=== PATIENT | female | born 1980 | race Caucasian/White ===

== ENCOUNTER 2017-07-27 19:43 | Emergency (ER) | payer SELFPAY ==
[~2017-07-27] VITALS: Ht 162.6 cm; Wt 94.2 kg
[2017-07-27 20:03] VITALS: Ht 162.6 cm; Wt 94.2 kg
[2017-07-27] MEDS ORDERED: SODIUM CHLORIDE 0.9% 1000ML 2,000 ML IV STA (21:47)
[2017-07-27] MEDS ORDERED: ONDANSETRON INJ 2 MG/ML 2 ML VIAL IV STA (21:47)
[2017-07-27 21:56] VITALS: O2SAT 96
[2017-07-27] MEDS ORDERED: DICYCLOMINE HCL 10 MG/ML 2 ML AMP IM ONE (22:00)
[2017-07-27 22:37] LABS: BASO % 0.1 %; BASO ABS # 0.01 K/uL (0-0.2); EOS % 1.9 %; EOS ABS # 0.14 K/uL (0-0.5); HEMATOCRIT 40.4 % (37-47); HEMOGLOBIN 13.9 g/dL (12.0-16.0); IG# 0.02 K/uL (0.00-0.02); LYMPH ABS # 1.75 K/uL (1.2-3.4); MEAN CORPUSCULAR HEMOGLOBIN 31.7 pg (25-34); MEAN CORPUSCULAR HGB CONC 34.4 g/dl (32-36); MEAN PLATELET VOLUME 10.6 fL (7.4-10.4); MONO % 11.5 %; MONO ABS # 0.84 K/uL (0.11-0.59); NEUT % 62.2 %; NEUT ABS # 4.52 K/uL (1.4-6.5); PLATELET COUNT 155 K/uL (130-400); RED CELL DISTRIBUTION WIDTH SD 47.2 fL (36.4-46.3); WHITE BLOOD COUNT 7.28 K/uL (4.8-10.8)
[2017-07-27 23:00] LABS: ALBUMIN 3.7 gm/dl (3.4-5.0); ALT/SGPT 24 U/L (12-78); BLOOD UREA NITROGEN 8 mg/dl (7-18); CALCIUM 8.4 mg/dl (8.5-10.1); CARBON DIOXIDE 25 mmol/L (21-32); CREATININE 0.63 mg/dl (0.60-1.20); GLUCOSE 99 mg/dl (70-99); LIPASE 131 U/L (73-393); POTASSIUM 3.9 mmol/L (3.5-5.1); SODIUM 135 mmol/L (136-145)
[2017-07-27 23:03] LABS: ALKALINE PHOSPHATASE 52 U/L (45-117); AST/SGOT 20 U/L (15-37); TOTAL PROTEIN 6.9 gm/dl (6.4-8.2)
[2017-07-27] MEDS ORDERED: BENTYL HOME PACK 10 MG VIAL PO ONE (23:45)
[2017-07-27] MEDS ORDERED: ONDANSETRON HOME PACK 4MG OD TAB PO ONE (23:45)
[2017-07-27 23:53] VITALS: BP 120/72; PULSE 70; TEMP 36.8; O2SAT 97
--- NOTE | 2017-07-28 04:56 | EMERGENCY ROOM VISIT NOTE ---
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 Patient woke this morning with nausea, vomiting and dirrhea. Patient states that she feels really bloated nad doesn't want to walk because the abdominal pain is so bad. History of Present Illness The patient is a 36 year old female who presents to the Emergency Room with complaints of nausea, vomiting, diarrhea and abdominal cramping for the past day. Patient was constipated a few days ago. Patient denies chest pain, dyspnea, fever, chills, cough, congestion, black or blood in the vomit or stool. No recent antibiotics. No well water. Other people at work are sick with similar symptoms. Review of Systems An 10 system review of systems was completed with positives and pertinent negatives listed in the HPI. Past Medical/Surgical History Methadone for chronic pain Social History Smoking Status: Current Every Day Smoker Alcohol Use: none Drug Use: none Marital Status: Housing Status: lives with family Current/Historical Medications No Active Prescriptions or Reported Meds Physical Exam Vital Signs Date Time Temp Pulse Resp B/P (MAP) Pulse Ox O2 Delivery O2 Flow Rate FiO2 07/27/17 23:53 36.8 70 18 120/72 97 Room Air 07/27/17 22:57 74 18 119/76 97 Room Air 07/27/17 22:29 78 07/27/17 21:56 96 Room Air 07/27/17 21:32 83 123/80 97 Room Air 07/27/17 20:03 36.9 99 18 131/73 98 Room Air Physical Exam VITALS: Vitals are noted on the nurse's note and reviewed by myself. Vital signs stable GENERAL: Pleasant female, in no acute distress, nondiaphoretic, well-developed well-nourished. SKIN: The skin was without rashes, erythema, edema, or bruising. There is no tenting of the skin. Capillary reflex less than 2 seconds. HEAD: Normocephalic atraumatic. EARS: External auditory canals clear, tympanic membranes pearly jones without erythema or effusion bilaterally. EYES: Pupils equal round and reactive to light and accommodation. Conjunctivae without injection, sclerae without icterus. Extraocular movements intact. NOSE: Patent, turbinates without inflammation or discharge. No sinus tenderness. MOUTH: Mucous membranes mildly dry pharynx without erythema or exudate. Uvula midline. Airway patent. Tongue does not deviate. NECK: Supple without nuchal rigidity. No lymphadenopathy. No thyromegaly. Cervical spine is nontender. No JVD. HEART: Regular rate and rhythm without murmurs gallops or rubs. LUNGS: Clear to auscultation bilaterally without wheezes, rales or rhonchi. No retractions or accessory muscle use. ABDOMEN: Positive bowel sounds x 4. Normal tympanic percussion. Soft, nontender, without masses or organomegaly. Rush sign negative. No guarding or rebound tenderness. No CVA tenderness MUSCULOSKELETAL: No muscle atrophy, erythema, or edema noted. NEURO: Patient was alert and oriented to person place and time. Normal sensation to light and sharp touch. No focal neurological deficits. Medical Decision & Procedures Laboratory Results 07/27/17 22:15 Red Blood Count 4.39, Mean Corpuscular Volume 92.0, Mean Corpuscular Hemoglobin 31.7, Mean Corpuscular Hemoglobin Concent 34.4, Mean Platelet Volume 10.6, Neutrophils (%) (Auto) 62.2, Lymphocytes (%) (Auto) 24.0, Monocytes (%) (Auto) 11.5, Eosinophils (%) (Auto) 1.9, Basophils (%) (Auto) 0.1, Neutrophils # (Auto ) 4.52, Lymphocytes # (Auto) 1.75, Monocytes # (Auto) 0.84, Eosinophils # (Auto ) 0.14, Basophils # (Auto) 0.01 07/27/17 22:15 Test 07/27/17 21:15 07/27/17 22:15 Urine Color YELLOW Urine Appearance CLEAR (CLEAR) Urine pH 7.5 (4.5-7.5) Urine Specific [place] 1.006 (1.000-1.030) Urine Protein NEG (NEG) Urine Glucose (UA) NEG (NEG) Urine Ketones NEG (NEG) Urine Occult Blood NEG (NEG) Urine Nitrite NEG (NEG) Urine Bilirubin NEG (NEG) Urine Urobilinogen NEG (NEG) Urine Leukocyte Esterase NEG (NEG) Urine Test NEG (NEG) White Blood Count 7.28 K/uL (4.8-10.8) Red Blood Count 4.39 M/uL (4.2-5.4) Hemoglobin 13.9 g/dL (12.0-16.0) Hematocrit 40.4 % (37-47) Mean Corpuscular Volume 92.0 fL (80-100) Mean Corpuscular Hemoglobin 31.7 pg (25-34) Mean Corpuscular Hemoglobin Concent 34.4 g/dl (32-36) Platelet Count 155 K/uL (130-400) Mean Platelet Volume 10.6 fL (7.4-10.4) Neutrophils (%) (Auto) 62.2 % Lymphocytes (%) (Auto) 24.0 % Monocytes (%) (Auto) 11.5 % Eosinophils (%) (Auto) 1.9 % Basophils (%) (Auto) 0.1 % Neutrophils # (Auto) 4.52 K/uL (1.4-6.5) Lymphocytes # (Auto) 1.75 K/uL (1.2-3.4) Monocytes # (Auto) 0.84 K/uL (0.11-0.59) Eosinophils # (Auto) 0.14 K/uL (0-0.5) Basophils # (Auto) 0.01 K/uL (0-0.2) RDW Standard Deviation 47.2 fL (36.4-46.3) RDW Coefficient of Variation 14.0 % (11.5-14.5) Immature Granulocyte % (Auto) 0.3 % Immature Granulocyte # (Auto) 0.02 K/uL (0.00-0.02) Anion Gap 5.0 mmol/L (3-11) Est Creatinine Clear Calc Drug Dose 134.8 ml/min Estimated GFR () 131.9 Estimated GFR (Non- 113.8 BUN/Creatinine Ratio 12.4 (10-20) Calcium Level 8.4 mg/dl (8.5-10.1) Total Bilirubin 0.3 mg/dl (0.2-1) Direct Bilirubin < 0.1 mg/dl (0-0.2) Aspartate Amino Transf (AST/SGOT) 20 U/L (15-37) Alanine Aminotransferase (ALT/SGPT) 24 U/L (12-78) Alkaline Phosphatase 52 U/L (45-117) Total Protein 6.9 gm/dl (6.4-8.2) Albumin 3.7 gm/dl (3.4-5.0) Lipase 131 U/L (73-393) Medications Administered Medications (Trade) Dose Ordered Sig/Clifford Route Start Time Stop Time Status Last Admin Dose Admin Dicyclomine HCl (Bentyl Inj) 20 mg NOW ONCE IM 07/27/17 22:00 07/27/17 22:01 DC 07/27/17 22:18 20 MG Ondansetron HCl (Zofran Inj) 4 mg NOW STAT IV 07/27/17 21:47 07/27/17 21:49 DC 07/27/17 22:18 4 MG Sodium Chloride 2,000 ml @ 999 mls/hr Q2H1M STAT IV 07/27/17 21:47 07/27/17 23:47 DC 07/27/17 22:18 999 MLS/HR Dicyclomine HCl (Dicyclomine HCl 10MG Home Pack) 1 ea UD ONCE PO 07/27/17 23:45 07/27/17 23:46 DC 07/27/17 23:53 1 EA Ondansetron HCl (ZOFRAN ODT 4MG Home Pack) 1 homepack UD ONCE PO 07/27/17 23:45 07/27/17 23:46 DC 07/27/17 23:52 1 HOMEPACK ED Course Prior records/ancillary studies reviewed. Triage Nursing notes reviewed. Additional history obtained from the family. The patient's history was concerning for nausea, vomiting, diarrhea, and abdominal pain. Differential diagnosis: Etiologies such as gastroenteritis, food borne illness, infections, appendicitis , diverticulitis, inflammatory bowel disease, obstruction, GI bleed, biliary pathology, as well as others were entertained. Physical examination findings: As above. Abdominal examination revealed no tenderness. Vital signs reviewed and revealed stable. ER treatment provided: IV hydration 2 L NSS. Zofran, Bentyl On reassessment the patient felt better. Patient was tolerating p.o. intake. Diagnostics interpretation by me: The labs revealed no worrisome leukocytosis or electrolyte abnormality. Negative urine and hCG This appears to be consistent with vomiting and diarrhea most likely viral in etiology. Patient was well-appearing. She tolerated crackers and Gatorade. She did not have acute abdomen on exam. Patient was informed that she developed pain in the right lower quadrant to return to the ER immediately for further evaluation and workup for possible appendicitis. She had no pain now and was able to walk around the ER without difficulties. She requested to leave. I felt this is reasonable. She is advised to follow-up family care in a day or 2 or here in the ER sooner for abdominal pain, fevers, vomiting, worsening signs or symptoms or as needed. By the evaluation outlined above emergent etiologies such as appendicitis, diverticulitis, obstruction, cardiac sources, mesenteric ischemia, aortic pathology, inflammatory bowel disease, renal colic, PUD, biliary pathology, UTI, as well as others were deemed relatively unlikely. The pt informed about the findings as listed above. All questions were answered and pleased with the treatment. Return instructions were outlined and the patient was discharged in stable condition. Outpatient prescription management: Jaclyn Nuno Referral: The patient was referred to their primary care physician for follow-up in 2 to 3 days for a recheck of the current condition. Case reviewed with my attending The chart was completed utilizing [employer] Speech voice recognition software. Grammatical errors, random word insertions, pronoun errors, and incomplete sentences are an occassional consequence of this system due to software limitations, ambient noise, and hardware issues. Any formal questions or concerns about the content, text, or information contained within the body of this dictation should be directly addressed to the physician secretary administrative assistant for clarification. Medical Decision As above Medication Reconcilliation Current Medication List: was personally reviewed by me Blood Pressure Screening Patient's blood pressure: Normal blood pressure Impression Primary Impression: Nausea vomiting and diarrhea Departure Information Dispostion Home / Self-Care Condition GOOD Prescriptions No Active Prescriptions or Reported Meds Forms Call Back Authorization, HOME CARE DOCUMENTATION FORM, Work Instructions, Return To Work: 2 days IMPORTANT VISIT INFORMATION Patient Instructions Vomit Diarrhea Self Care, [facility] Additional Instructions DO NOT drive, drink alcohol, operate machinery, or perform dangerous activities today. You were given medications in the ER that can affect your ability to safely function or operate a vehicle. Bently 10mg: Take one every six hours as needed for abdominal cramping and bloating avoid alcohol, operating machinery or dangerous equipment, working on ladders or roofs, DRIVING, or situations where being under the influence may be dangerous. Zofran(odansetron) tablets 4mg: Take one and allow it to dissolve in your mouth every four to six hours as needed for nausea or vomiting. Ibuprofen(Motrin, Advil) may be used for fever or pain. Use 600mg every six hours as needed. Take with food. Avoid using more than 2400mg in a 24 hour period. Do not use 2400mg per day for more than three consecutive days without physician direction. Prolonged inappropriate use can lead to stomach upset or ulcers. (AND/OR) Acetaminophen(Tylenol) may be used for fever or pain. Use 1000mg every six hours as needed. Avoid using more than 3000mg in a 24 hour period. Rest and drink plenty of fluids as tolerated. Slow sips of water or sports drinks are recommended instead of large amounts all at once. Continue current medications. Once your stomach is settled start with a clear liquid diet (jello, soup broth, etc.) and then advance as tolerated. You should avoid full, heavy meals for about 24 hrs from the time your symptoms resolved. Return to the ER for persistent vomiting, fevers, abdominal pain, chest pains, difficulty breathing, black or bloody stools, worsening of your condition, or as needed. Follow up with your primary physician in 2-3 days for a recheck of your current condition. Work Instructions Return To Work: 2 days
== END 2017-07-27 23:54 | disposition home or self-care (01) ==
LOC: C.EDB 19:44 → C.EDC 23:54
DX: R11.2 Nausea with vomiting, unspecified (principal); R19.7 Diarrhea, unspecified; F17.200 Nicotine dependence, unspecified, uncomplicated

== ENCOUNTER → 2017-11-21 | Outpatient (CLI) | payer OTHER | END | disposition home or self-care (01) | LOC: C.LABPBG 15:13 | PROVIDERS: ATTEND Family Medicine | DX: R10.9 Unspecified abdominal pain (principal) ==